=== PATIENT | female | born 1990 | race Hispanic/Latino ===

== ENCOUNTER 2023-04-07 06:37 | Day surgery (SDC) | payer OTHER, SELFPAY ==
[2023-04-07] VITALS (9 sets, daily range): BP systolic 108–116; BP diastolic 60–78; BMI 32.1
[2023-04-07] MEDS: TYLENOL 1000 MG PO (14:10)
[2023-04-07] MEDS: NORMOSOL-R 1000 IV (14:15)
[2023-04-07] MEDS: IC GREEN 2.5 MG IV (14:20)
--- NOTE | 2023-04-07 16:52 | OR.RPT ---
Operative Report
Operative Report
Primary Surgeon: Aby
Assisting: Humphrey
Pre-op Diagnosis: Biliary colic
Post-op Diagnosis: Same
Procedure Performed: Robot assisted laparoscopic cholecystectomy with cholangiogram
Anesthesia Type: GETA
Specimen / Cultures: Gallbladder
Estimated Blood Loss: 5cc
Complications: None immediate
Operative Findings: Softly distended gallbladder, cholangiogram with good flow into duodenum and bile ducts, no filling defects.
Date of Surgery:� 04/07/23
Indications: This 33F developed biliary colic with elevated liver enzymes. Laparoscopic cholecystectomy with cholangiogram was elected.
Description of procedure: The patient was placed on the operating table in the supine position. General anesthesia was induced. A time-out was completed verifying correct patient, procedure, site, positioning, and special equipment prior to
beginning this procedure. An orogastric tube was placed. The abdomen was prepped and draped in the usual sterile fashion. A stab incision was made in left upper quadrant and the Veress needle was inserted. Proper position was confirmed by aspiration
and saline meniscus test. The abdomen was insufflated with carbon dioxide to a pressure of 12mmHg. The patient tolerated insufflation well.
A 8mm trocar was then inserted above the umbilicus. The laparoscope was inserted and the abdomen inspected. No injuries from initial trocar placement or Veress needle insertion were noted. Additional 8mm trocars were then inserted in the following
locations: two in the right lower quadrant and to the left of the umbilicus and just above. The abdomen was inspected and no abnormalities were found. The table was placed in the reverse Trendelenburg position with the right side up. The dome of the
gallbladder was grasped with an atraumatic grasper and retracted over the dome of the liver. The infundibulum was then grasped with an atraumatic grasper and retracted toward the right lower quadrant. This maneuver exposed Calot�s triangle. The
peritoneum overlying the gallbladder infundibulum was then incised and the cystic duct and cystic artery identified and circumferentially dissected so that a clear view of the liver was achieved through a window between the cystic duct an cystic
artery. At this time, the only two structures going into the gallbladder were the cystic artery and cystic duct. The common duct was identified with ICG and protected.
A alfa was made in the cystic duct and a cholangiogram catheter passed through the abdominal wall at the site of the veress incision and threaded into the cystic duct and secured with a 2-0 silk tie. A cholangiogram was obtained showing good flow of
contrast into the bile ducts and duodenum without filling defects. The catheter was removed.
The cystic duct was then doubly clipped and divided. The cystic artery was controlled with bipolar and divided. The gallbladder was then dissected from its peritoneal attachments by electrocautery. Hemostasis was assured and the gallbladder was
removed using an endoscopic retrieval bag placed through the umbilical port. The gallbladder was passed off the table as a specimen. The gallbladder fossa was closely inspected and hemostasis was again assured. There was no evidence of bleeding from
the gallbladder fossa or cystic artery or leakage of the bile from the cystic duct stump. The umbilical trocar site was closed at the fascial level with 2-0 PDS. Secondary trocars were removed under direct vision and noted to be hemostatic. The
abdomen was allowed to collapse. The skin was closed with subcuticular sutures of 4-0 monocryl and topical skin adhesive. The orogastric tube was removed.
The patient tolerated the procedure well and was taken to the postanesthesia care unit in stable condition.
[2023-04-07] MEDS: DILAUDID 0.25 MG IV ×2 (17:25→17:36)
== END 2023-04-07 19:40 | disposition home or self-care (01) ==
LOC: SDS 06:37
PROVIDERS: ATTENDING PHYSICIAN Surgery
DX: K80.10 Calculus of gallbladder with chronic cholecystitis without obstruction (principal)
CPT/HCPCS: 47563; 88304; 74300; 76000

== ENCOUNTER 2023-07-26 14:51 | Emergency (ER) | payer OTHER, SELFPAY ==
[2023-07-26 14:55] VITALS: BP 138/82
[2023-07-26 16:46] VITALS: BP 128/79
[2023-07-26] MEDS: NSS 1000 IV (16:56)
[2023-07-26] MEDS: TORADOL 15 MG IV (16:56)
[2023-07-26] MEDS: REGLAN 10 MG IV (16:57)
[2023-07-26 17:09] LABS: HCG, Urine Qualitative Screen Negative
[2023-07-26 17:26] VITALS: BP 116/63
--- NOTE | 2023-07-26 17:40 | ED.GENMED ---
History of Present Illness
General
Chief Complaint: Headache
Time Seen by Provider: 07/26/23 16:19
Travel History
Have you had any contact with someone who has COVID-19?: No
Do you have any symptoms of coronavirus? Fever > 100 degrees, chills, cough, shortness of breath, sore throat, loss of taste or smell, muscle aches, or headache?: No
History of Present Illness
History of Present Illness:
33-year-old female with no past medical history presents to the emergency department for evaluation of frequent headaches to the right side of the head associated with anterior facial pressure and right eye discomfort. She reports she is had
frequent episodes of photophobia and vomiting over the past 3 days. Headaches are intermittent and do not occur every day, no obvious pattern or provoking factors. No blurry vision or double vision. States that she saw an eye doctor regarding the
symptoms and was diagnosed with allergic conjunctivitis and has been taking olopatadine drops for the past several days however these are not helping her pain. She was not able to take any pain medications tmam-alv-uryycja due to vomiting today.
No history of recent or remote head trauma
Past History
Past History
ED Past Medical History: Other (cholelithiasis)
ED Past Surgical History: None
Social History
Tobacco: Non-smoker
Alcohol: None
Personal:
Living: with family
Employment: Not employed
Family History
Family History: Other (Noncontributory)
Review of Systems
Review of Systems
Allergies reviewed?: Yes
All Other Systems: ROS reviewed and negative except as documented in HPI and ROS
Phy Exam
Physical Exam
Physical Exam:
GEN: Well appearing, NAD, WDWN
HEENT: Oral mucosa moist, no scleral icterus, no nasal congestion. Bilateral sclera are anicteric with no injection. Extra ocular motions are normal and symmetric. Intraocular pressures measured at 13 mmHg on the right and 14 mmHg on the left
Cardiac: Regular rate
Lung: No respiratory distress, no tachypnea
MSK: No gross deformity or injuries
Skin: Good color, no pallor or jaundice, no rashes
Neuro: AO x3; CN II-XII grossly intact. BUE strength 5/5 in all avery, sensation intact and symmetric. BLE strength 5/5 in all avery, sensation intact and symmetric
Psych: Calm, cooperative
Course
Orders/Labs/Results
Orders:
Orders
07/26/23 16:50
Test Result ONCE
07/26/23 16:51
CT Head W/o Iv Contrast Urgent
Comment:
Reason For Exam: severe headache
0.9% Sodium Chloride 1000 ml [Nss] 1,000 ml IV BOLUS
Ketorolac [Toradol] 15 mg IV NOW STA
Metoclopramide [Reglan] 10 mg IV NOW STA
07/26/23 16:52
Beta Hcg Urine Qualitative Screen [HCG, Urine Qualitative Screen] Urgent
Date Specimen was Collected: 07/26/23
Time Specimen was Collected: 16:51
Vital Signs
Initial and Last Documented VS:
Initial Vital Signs
Temp Pulse Resp BP Pulse Ox
98.4 F 81 20 138/82 98
07/26/23 14:55 07/26/23 14:55 07/26/23 14:55 07/26/23 14:55 07/26/23 14:55
Last Documented Vital Signs
Temp Pulse Resp BP Pulse Ox
98.4 F 81 20 114/74 98
07/26/23 14:55 07/26/23 14:55 07/26/23 14:55 07/26/23 18:00 07/26/23 18:00
MDM/Problems Addressed
MDM/Problems Addressed:
Likely migraine presentation. She has no focal findings to the right eye to suggest that this is an isolated ocular problem. No evidence for glaucoma. CT of the head was obtained due to the frequency and intensity his headaches and this was
fortunately unremarkable. Her symptoms did improve dramatically with supportive treatment in the emergency department.
*Critical Care Note
Total Time (30-74mins, 75-104mins- exclusive of procedures): Not Applicable
ED Attending Note
-
Portions of this chart may have been created with voice recognition software.� Occasional wrong word or��sound alike� substitutions may have occurred due to the inherent limitations of voice recognition software.
Discharge Plan
Departure
Patient Disposition: Home (Routine Discharge)
Date of Disposition: 07/26/23
Time of Disposition: 18:06
Patient with high blood pressure during this ER visit?: No
Discharge Problem:
Migraine headache
Instructions: Migraines (DC)
Prescriptions:
New
nycedenhid-szseuxxblsjbx-nsft [Fioricet] 50-300-40 mg capsule
1 cap PO TID PRN (Reason: Pain) Qty: 10 0RF
ondansetron 4 mg tablet,disintegrating
4 mg PO TIDPRN PRN (Reason: nausea/vomiting) Qty: 10 0RF
No Action
norethindrone (contraceptive) [Jencycla] 0.35 mg Tablet
0.35 mg PO DAILY
oxycodone 5 mg tablet
5 - 10 mg PO Q4HPRN PRN (Reason: moderate to severe pain) Qty: 20 0RF
Referrals:
UNKNOWN - PT DOES,NOT KNOW [Family Provider] -
Interventions
Interventions:
*Risk Screen - Suicide Last Done: 07/26/23 14:55
*General Assessment Last Done: 07/26/23 14:55
*Neglect/Abuse Screening Last Done: 07/26/23 14:55
ED- Fall Risk Assessment Last Done: 07/26/23 16:26
*ED COVID-19 Vaccine History Last Done: 07/26/23 16:21
*Nursing Disposition Last Done: 07/26/23 18:14
ED- Neurological Assessment Last Done: 07/26/23 16:21
Discharge Date and Time
Discharge Date/Time: 07/26/23 18:15
Print Language: MOHAWK
[2023-07-26 18:00] VITALS: BP 114/74
== END 2023-07-26 18:15 | disposition home or self-care (01) ==
LOC: EMR 14:51
PROVIDERS: Physician Assistant; EMERGENCY PHYSICIAN Emergency Medicine
DX: G43.909 Migraine, unspecified, not intractable, without status migrainosus (principal)
CPT/HCPCS: 99284; 96374; 96375; 70450; 81025

== ENCOUNTER 2023-09-26 22:10 | Emergency (ER) | payer OTHER, SELFPAY ==
[2023-09-26 22:13] VITALS: BP 121/83
--- NOTE | 2023-09-26 22:44 | ED.GENMED ---
Addendum entered and electronically signed by Rich Beckford DO 09/27/23 00:26:
Will try some frances iram and applesauce
Original Note:
History of Present Illness
General
Chief Complaint: Throat Problem
Source: patient, spouse and family
Exam Limitations: none
Time Seen by Provider: 09/26/23 22:31
Nursing documentation reviewed up to this point in time: agreed with
History of Present Illness
History of Present Illness:
33 female presents with sore throat painful swallowing nausea onset earlier today hurts to drink water, no fever, no chest pains, does not believe she ate a chicken or any bony foods to get stuck in her throat, she had her gallbladder removed does
not drink alcohol or smoke
Past History
Past History
ED Past Medical History: Other (cholelithiasis)
ED Past Surgical History: Cholecystectomy
Social History
Tobacco: Non-smoker
Alcohol: None
Drug: None
Personal:
Living: with family
Employment: Not employed
Family History
Family History: Other (Noncontributory)
Review of Systems
Review of Systems
All Other Systems: Not applicable
Constitutional: Denies fever or fatigue
EENT: Reports sore throat and mouth pain; Denies mouth swelling
Respiratory: Denies trouble breathing
Cardiac: Reports no symptoms
ABD/GI: Reports nausea
: Reports no symptoms
Musculoskeletal: Reports no symptoms
Skin: Reports no symptoms
Phy Exam
Physical Exam
Physical Exam:
Physical Exam
General: 33 female looks uncomfortable nontoxic
Neck: Posterior pharynx slightly red no drooling no trismus no petechiae, no thrush
Heart: s1/s2 regular rate and rhythm, no murmur. equal radial pulses.
Lungs: no acute respiratory distress. clear bilaterally
Abdomen: Not tender
Neuro: alert and oriented. no focal neurological deficits
Skin: no rash
Psychiatric: well kept. interactive and cooperative
Extremities: no edema.
Course
Orders/Labs/Results
Orders:
Orders
09/26/23 22:43
Electrocardiogram (*1) Urgent
Reason for Study: Abdominal Pain
EKG- Treatment ONCE
Mag Hydrox/Al Hydrox/Simeth [Maalox] 30 ml Phenobarb/Hyoscy/Atropine/Scop [] 10 ml Viscous Lidocaine 2% [Xylocaine Viscous Cup] 10 ml PO NOW
Soft Tissue, Neck [CR Soft Tissue Neck ] Urgent
Comment:
Reason For Exam: pian
09/26/23 22:46
Phenobarb/Hyoscy/Atropine/Scop [] 10 ml .ROUTE .STK-MED ONE
09/26/23 22:49
Mag Hydrox/Al Hydrox/Simeth [Maalox] 30 ml .ROUTE .STK-MED ONE
09/26/23 22:53
Viscous Lidocaine 2% [Xylocaine Viscous Cup] 15 ml .ROUTE .STK-MED ONE
09/26/23 23:00
Rapid Strep Group A Urgent
KHRIS Source: Throat/Pharynx
Specimen Description:
Date Specimen was Collected: 09/26/23
Time Specimen was Collected: 22:59
09/27/23 00:03
Ibuprofen [Motrin] 600 mg PO NOW STA
Vital Signs
Initial and Last Documented VS:
Initial Vital Signs
Temp Pulse Resp BP Pulse Ox
98.6 F 65 18 121/83 99
09/26/23 22:13 09/26/23 22:13 09/26/23 22:13 09/26/23 22:13 09/26/23 22:13
Last Documented Vital Signs
Temp Pulse Resp BP Pulse Ox
98.6 F 65 18 121/83 99
09/26/23 22:13 09/26/23 22:13 09/26/23 22:13 09/26/23 22:13 09/26/23 22:13
MDM/Problems Addressed
Differential Diagnosis Includes:
Dysphagia pharyngitis foreign body sensation gastritis esophagitis less likely epiglottitis
MDM/Problems Addressed:
Sore throat painful swallowing
*Radiology
Radiology exam reviewed: preliminary read by ED provider
*Pulse Oximetry
Patient hypoxic: no
*EKG
Interpreted by ED Provider?: Yes
Interpretation: normal
Comparison EKG: no comparison EKG present
Heart Rate: 78
Rate: normal
Rhythm: sinus
Ischemia: no ischemia
*Chicken Boner Interpretation
Rate: Chicken Boner- N/A
*Critical Care Note
Total Time (30-74mins, 75-104mins- exclusive of procedures): Not Applicable
Update Note
Update Note:
Update x-ray noted negative my full report pending, rapid strep noted EKG noted looks nonischemic
Patient denies any knee getting stuck in her throat she is tolerating fluids here, will try some ibuprofen
ED Attending Note
-
Portions of this chart may have been created with voice recognition software.� Occasional wrong word or��sound alike� substitutions may have occurred due to the inherent limitations of voice recognition software.
Discharge Plan
Departure
Patient Disposition: Home (Routine Discharge)
Date of Disposition: 09/27/23
Time of Disposition: 00:14
Patient with high blood pressure during this ER visit?: No
Condition: Good
Discharge Problem:
Pain or burning when swallowing
Instructions: Pureed Diet, Dysphagia in adults - Discharge instructions
Prescriptions:
New
ibuprofen 100 mg/5 mL suspension
400 mg PO Q6H PRN (Reason: Pain) Qty: 473 0RF
alum-mag hydroxide-simeth [Maalox Advanced] 200-200-20 mg/5 mL suspension
15 ml PO QID PRN (Reason: dyspepsia) Qty: 1500 0RF
No Action
norethindrone (contraceptive) [Jencycla] 0.35 mg Tablet
0.35 mg PO DAILY
oxycodone 5 mg tablet
5 - 10 mg PO Q4HPRN PRN (Reason: moderate to severe pain) Qty: 20 0RF
anawllyhvt-cojxdctbrcxay-qjyr [Fioricet] 50-300-40 mg capsule
1 cap PO TID PRN (Reason: Pain) Qty: 10 0RF
ondansetron 4 mg tablet,disintegrating
4 mg PO TIDPRN PRN (Reason: nausea/vomiting) Qty: 10 0RF
Referrals:
UNKNOWN - PT DOES,NOT KNOW [Family Provider] -
Interventions
Interventions:
*Risk Screen - Suicide Last Done: 09/26/23 23:06
*General Assessment Last Done: 09/26/23 23:06
*Neglect/Abuse Screening Last Done: 09/26/23 23:06
ED-EENT Assessment Last Done: 09/26/23 23:06
ED- Pulmonary Assessment Last Done: 09/26/23 23:06
Discharge Date and Time
Print Language: SINHALA
[2023-09-26] MEDS: MAALOX 50 PO (22:54)
[2023-09-27] MEDS: MOTRIN 600 MG PO (00:07)
== END 2023-09-27 00:35 | disposition home or self-care (01) ==
LOC: EMR 22:10
PROVIDERS: EMERGENCY PHYSICIAN Emergency Medicine
DX: R07.0 Pain in throat (principal)
CPT/HCPCS: 99285; 70360; 87070; 87880; 93005

== ENCOUNTER 2024-01-13 03:28 | Emergency (ER) | payer SELFPAY ==
[2024-01-13 03:30] VITALS: BP 125/82
[2024-01-13 04:15] VITALS: BMI 25.0
--- NOTE | 2024-01-13 04:16 | ED.GENMED ---
History of Present Illness
General
Chief Complaint: Oral/Mouth Problem
Time Seen by Provider: 01/13/24 03:38
History of Present Illness
History of Present Illness:
34-year-old female without significant past medical history presenting for dental pain. Patient reports that she has been having dental pain for the past several weeks to months, history of dental caries and broken teeth. Symptoms been getting
worse in the past few days, left upper and lower teeth. Denies difficulty breathing or difficulty swallowing. Denies fever. She has been taking Tylenol for pain without significant relief. She has an appointment with her dentist today at 3 PM.
Denies additional medical complaints. 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
Past History
Past History
ED Past Medical History: Other (cholelithiasis)
ED Past Surgical History: Cholecystectomy
Social History
Tobacco: Non-smoker
Alcohol: None
Drug: None
Personal:
Living: with family
Employment: Not employed
Family History
Family History: Other (Noncontributory)
Phy Exam
Physical Exam
Physical Exam:
General: Well-appearing, no clinical signs of dehydration, nontoxic and in no acute distress
HEENT: protecting airway, overall very poor dentition with multiple dental caries and missing teeth. No fluctuance or swelling to the gumline. No trismus. No oropharyngeal erythema. Normal phonation of voice
Neck: appears supple
CV: Normal heart rate
Resp: No accessory muscle use, no increased work of breathing
Abd: No distention
Extremities: No deformities, no swelling
Neuro: alert, no focal neurologic deficit
: deferred
Rectal: deferred
Psych: Normal affect
Skin: Intact
Course
Orders/Labs/Results
Orders:
Orders
01/13/24 04:15
Ketorolac [Toradol] 30 mg IM NOW STA
Penicillin V Potassium [Pen Vk] 500 mg PO NOW STA
Vital Signs
Initial and Last Documented VS:
Initial Vital Signs
Temp Pulse Resp BP Pulse Ox
98.9 F 68 18 125/82 99
01/13/24 03:30 01/13/24 03:30 01/13/24 03:30 01/13/24 03:30 01/13/24 03:30
Last Documented Vital Signs
Temp Pulse Resp BP Pulse Ox
98.9 F 68 18 125/82 99
01/13/24 03:30 01/13/24 03:30 01/13/24 03:30 01/13/24 03:30 01/13/24 03:30
MDM/Problems Addressed
MDM/Problems Addressed:
34-year-old female presenting for dental pain. Vital signs are normal. Physical exam as noted above.
Patient is well-appearing, no acute distress or discomfort. She is afebrile, nontoxic. On physical exam was concerning for possible apical abscess. No palpation of a external abscess or drainable abscess. No trismus, normal phonation of voice, or
additional concerning features. Will start patient on penicillin VK for suspected infection. Will administer Toradol for pain. Patient has an appointment with her dentist today which I encouraged that she maintain, will likely require x-ray
imaging of her teeth. Otherwise feel stable for discharge. Return precautions discussed and patient verbalized understanding
*Critical Care Note
Total Time (30-74mins, 75-104mins- exclusive of procedures): Not Applicable
ED Attending Note
-
Portions of this chart may have been created with voice recognition software.� Occasional wrong word or��sound alike� substitutions may have occurred due to the inherent limitations of voice recognition software.
Discharge Plan
Departure
Prescriptions:
No Action
norethindrone (contraceptive) [Jencycla] 0.35 mg Tablet
0.35 mg PO DAILY
oxycodone 5 mg tablet
5 - 10 mg PO Q4HPRN PRN (Reason: moderate to severe pain) Qty: 20 0RF
usgbpjmyhp-rglewhryznlau-qthv [Fioricet] 50-300-40 mg capsule
1 cap PO TID PRN (Reason: Pain) Qty: 10 0RF
ondansetron 4 mg tablet,disintegrating
4 mg PO TIDPRN PRN (Reason: nausea/vomiting) Qty: 10 0RF
ibuprofen 100 mg/5 mL suspension
400 mg PO Q6H PRN (Reason: Pain) Qty: 473 0RF
alum-mag hydroxide-simeth [Maalox Advanced] 200-200-20 mg/5 mL suspension
15 ml PO QID PRN (Reason: dyspepsia) Qty: 1500 0RF
Interventions
Interventions:
*Risk Screen - Suicide Last Done: 01/13/24 04:10
*General Assessment Last Done: 01/13/24 04:10
*Neglect/Abuse Screening Last Done: 01/13/24 04:10
ED- Fall Risk Assessment Last Done: 01/13/24 04:10
*ED COVID-19 Vaccine History Last Done: 01/13/24 03:34
Discharge Date and Time
Print Language: [email or web address]
[2024-01-13] MEDS: PEN VK 500 MG PO (04:34)
[2024-01-13] MEDS: TORADOL 30 MG IM (04:34)
[2024-01-13 04:40] VITALS: BP 131/91
== END 2024-01-13 04:40 | disposition home or self-care (01) ==
LOC: EMR 03:28
PROVIDERS: EMERGENCY PHYSICIAN Student in an Organized Health Care Education/Training Program
DX: K04.7 Periapical abscess without sinus (principal)
CPT/HCPCS: 99284; 96372